=== PATIENT | female | born 1975 | race Caucasian/White ===

== ENCOUNTER 2023-07-26 15:50 | Emergency (ER) | payer OTHER, SELFPAY ==
--- NOTE | ~2023-07-26 | XR_ITS ---
EXAM: XR heel LT min 2V DATE: 07/26/2023 16:21 HISTORY: LEFT HEEL PAIN NO INJURY . COMPARISON: None available. FINDINGS: Normal mineralization. No fracture or dislocation. No lytic or blastic lesion. Joint space s are maintained. Minimal Achilles and plantar enthesopathy. No erosion or periosteal change. Soft ti ssues within normal limits. IMPRESSION: No acute osseous finding in the left heel. Reviewed, dictated and finalized at location [facility]
--- NOTE | 2023-07-26 15:52 | ED.LOWEXIN ---
HPI - Extremity Injury (Lower) General Chief Complaint: Extremity Injury, Lower Stated Complaint: L FOOT PAIN Time Seen by Provider: 07/26/23 15:52 Source: patient Mode of arrival: ambulatory Limitations: no limitations History of Present Illness HPI Narrative: Maryann is a 48-year-old female patient presenting to clinic today with complaints of left heel pain x5 days. She reports no known injury. States that she has to walk a mile to and from her office at [facility]. Wears running shoes on a daily basis. Denies wearing any new shoes. Has pain to the posterior heel. Is concerned about a stress fracture or a bone spur. Review of Systems Review of Systems: Pertinent positives per HPI. Patient denies any fever, chills, rash, headache, visual changes, dizziness, cough, runny nose, sore throat, shortness of breath, chest pain, palpitations, nausea, vomiting, diarrhea, constipation, abdominal pain, or any urinary issues. PMFSH Comments At the time of my signature, I reviewed and agree with the nursing past medical, surgical, social, and family history. There is no relevant family history pertinent to the patient complaint. Exam Narrative: General: Well-developed, well nourished, in no apparent distress Head: Normocephalic, atraumatic. Cardio: Regular rate and rhythm, s1 and s2 normal, no murmur appreciated. Resp: Clear to auscultation bilaterally, no rhonchi, rales, wheezing or rubs. Musculoskeletal: No deformity, tender to palpation over the posterior heel, no pain with plantar flexion and dorsal flexion against resistance, nontender to palpation over the Achilles tendon, nontender to palpation over the plantar fascia or the anterior heel, mild redness noted to the posterior calcaneus, grossly normal range of motion, muscle strength strong and equal, peripheral pulse strong, no edema, no cyanosis, normal gait and station Course Course Emergency Course: Portions of this record may have been created with voice recognition software. Level of Care: Express Care Visit Vital Signs Vital signs: Vital signs reviewed MDM - Extremity Injury (Lower) MDM Narrative Medical decision making narrative: At the time of visit patient is resting comfortably on the exam table. Patient appears to be nontoxic. Diagnostics: X-ray of left heel was performed and is negative for any sign fracture or malalignment. Does show very minimal plantar and Achilles spurring Plan: I suspect you have inflammation soft tissue left heel. Supportive measures were discussed with the patient and they voiced understanding discharge instructions and agrees to treatment plan. Return precautions reviewed Differential Diagnosis Differential diagnosis: Likely other (Heel pain, bone spur, stress fracture, Achilles tendinitis, plantar fasciitis) Imaging Data Radiologist's impression: ITS Impressions Heel X-Ray 07/26/23 16:49 IMPRESSION: No acute osseous finding in the left heel. Discharge Plan Discharge Clinical Impression: Heel pain Qualifiers: Laterality: left Qualified Code(s): M79.672 - Pain in left foot Patient Disposition: Home, Self-Care Condition: Stable Instructions: Antibiotic Form, Heel Spur (ED) Additional Instructions: X-rays negative for any heel fracture, or foreign body. Does show very minimal Achilles and plantar spurs I suspect you have inflammation in the subcutaneous tissue possibly due to bone spurs. Place an [id number] doctor scholls heel protector in your shoe to help alleviate pain when you are walking Rest and ice May take Tylenol/Motrin as pain Follow-up with your primary care provider in 1 week if symptoms persist or sooner if they worsen Follow-up/Referrals: UNKNOWN,DOCTOR [Non-Staff] - Time of Disposition: 16:25 Quality NIHSS Nursing Documentation ED NIHSS nursing documentation: reviewed/agree
[2023-07-26 16:12] VITALS: BP 108/87; PULSE 73; RESP 16; TEMP 36.9; O2SAT 100
== END 2023-07-26 17:05 | disposition home or self-care (01) ==
PROVIDERS: Emergency Provider Nurse Practitioner Family; PCP Physician Assistant
DX: M79.672 Pain in left foot (principal)
CPT/HCPCS: 73650; 99203; G0463